=== PATIENT | female | born 1975 | race Two or more races ===

== ENCOUNTER 2021-08-12 12:13 | Emergency (ER) | payer SELFPAY ==
[~2021-08-12] VITALS: Ht 152.4 cm; Wt 100.0 kg
[2021-08-12 12:34] VITALS: BP 142/75
[2021-08-12] MEDS: LIDOCAINE 2% Multi-Dose 20 ML VIAL. IJ ONE (12:53)
[2021-08-12] MEDS: DIPHTH,PERTUSS(ACELL),TET TOX 0.5 ML DISP.SYRIN. VAX IM ONE (12:54)
[2021-08-12] MEDS ORDERED: AMOX1TAB61 PO (13:32)
--- NOTE | 2021-08-12 13:32 | PHYS DOC ---
Past Medical History Past Medical History: Diabetes-Type II Past Surgical History: No Surgical History Smoking Status: Never Smoker Alcohol Use: None Drug Use: None General Adult EDM: Chief Complaint: FINGER INJURY HPI: HPI: Patient is a 46-year-old female who presents today with left third finger pain. Patient states a couple days ago she did some nail care to her nails and she states she trimmed around her cuticles and she believes that she caused a small cut on her cuticle and now it is swollen and painful. Patient states she has a history of diabetes, and she states that her sugars have been running normal. Patient denies chest pain, shortness of breath, fever or chills. Patient is [place]-speaking only and there is an purler at the bedside to assist with HPI and review of systems. Review of Systems: Review of Systems: Constitutional: Denies fever or chills. [] Eyes: Denies change in visual acuity. [] HENT: Denies nasal congestion or sore throat. [] Respiratory: Denies cough or shortness of breath. [] Cardiovascular: Denies chest pain or edema. [] GI: Denies abdominal pain, nausea, vomiting, bloody stools or diarrhea. [] : Denies dysuria. [] Musculoskeletal: Left third finger pain Integument: Denies rash. [] Neurologic: Denies headache, focal weakness or sensory changes. [] Endocrine: Denies polyuria or polydipsia. [] Lymphatic: Denies swollen glands. [] Psychiatric: Denies depression or anxiety. [] Heart Score: C/O Chest Pain: No Risk Factors: Risk Factors: DM, Current or recent (<one month) smoker, HTN, HLP, family history of CAD, obesity. Risk Scores: Score 0 - 3: 2.5% MACE over next 6 weeks - Discharge Home Score 4 - 6: 20.3% MACE over next 6 weeks - Admit for Clinical Observation Score 7 - 10: 72.7% MACE over next 6 weeks - Early Invasive Strategies Current Medications: Current Medications Medications (Trade) Dose Ordered Sig/Jorge Start Time Stop Time Status Last Admin Dose Admin Diphtheria/ Tetanus/Acell Pertussis (Boostrix) 0.5 ml ONCE ONCE 08/12/21 12:45 08/12/21 12:49 DC 08/12/21 12:54 0.5 ML Lidocaine HCl (Lidocaine 2% 20ml Vial) 20 ml 1X ONCE 08/12/21 12:45 08/12/21 12:49 DC 08/12/21 12:53 20 ML Allergies: Allergies: Allergies Coded Allergies Type Severity Reaction Last Updated Verified No Known Drug Allergies 08/12/21 No Physical Exam: PE: Constitutional: Well developed, well nourished, no acute distress, non-toxic appearance. [] HENT: Normocephalic, atraumatic, bilateral external ears normal, oropharynx moist, no oral exudates, nose normal. [] Eyes: PERRLA, EOMI, conjunctiva normal, no discharge. [] Neck: Normal range of motion, no tenderness, supple, no stridor. [] Cardiovascular:Heart rate regular rhythm, no murmur [] Lungs & Thorax: Bilateral breath sounds clear to auscultation [] Abdomen: Bowel sounds normal, soft, no tenderness, no masses, no pulsatile masses. [] Skin: Left third finger pain distal and to the lateral aspect of the nail, there is swelling and there is a collection of fluid due to an area of blanching that is noted with pressure is applied to the distal end of the finger. Back: No tenderness, no CVA tenderness. [] Extremities: Left third finger tenderness is noted with palpation to the distal aspect of the finger, range of motion is intact cap refills less than 2 seconds, sensory is intact distal to the injury. Patient has adequate range of motion of the hand with flexion extension present. Neurologic: Alert and oriented X 3, normal motor function, normal sensory function, no focal deficits noted. [] Psychologic: Affect normal, judgement normal, mood normal. [] Current Patient Data: Vital Signs: Vital Signs Date Time Temp Pulse Resp B/P (MAP) Pulse Ox O2 Delivery O2 Flow Rate FiO2 08/12/21 12:34 97.9 76 18 142/75 (97) 100 Room Air 97.9 EKG: EKG: [] Radiology/Procedures: Radiology/Procedures: Indication: left third finger paronychia Procedure: Patient was placed in a supine position, digital block was done to the left third finger, after the finger was appropriate anesthetized with lidocaine 2% 4 mL, area was cleansed with Betadine solution, using a #11 scalpel a incision was made parallel to the nail on the lateral aspect, scant amount of pus was obtained, nonadherent dressing was applied by the nursing staff along with tube gauze, patient's tetanus shot was updated while she was here in the emergency department The patient tolerated the procedure well. Course & Med Decision Making: Course & Med Decision Making Pertinent Labs and Imaging studies reviewed. (See chart for details) [1328 dressing applied by nursing staff patient will be discharged home, patient is instructed to keep the wound clean and dry, if she does handle any food or needs to get her hands wet she is to wear gloves, she is to leave the current dressing in place for the next 24 hours and then remove keeping the area covered until it is healed. Patient will be placed on Augmentin 875 twice daily for 7 days, patient is to take Tylenol and/or ibuprofen as needed for pain follow-up with her primary care physician next week for further evaluation and management of this. Patient is instructed to return here to the emergency department should she have increased pain and swelling in the finger, any red streaks noted in the hand, or she develops a fever. Dragon Disclaimer: Dragon Disclaimer: This electronic medical record was generated, in whole or in part, using a voice recognition dictation system. Departure Departure Impression: Primary Impression: Paronychia of finger of left hand Disposition: 01 HOME / SELF CARE / HOMELESS Condition: STABLE Referrals: RUTHANN WEST MD (PCP) Patient Instructions: Paronychia Additional Instructions: Augmentin 875 mg 1 tablet twice daily for 7 full days Leave the current dressing in place for the next 24 hours then remove keeping the wound clean and dry cleansing it twice daily with antibacterial soap, watching for any signs and symptoms of infection which may include redness, swelling, increased drainage, or red streaking of the hand Tylenol and/or ibuprofen as needed for pain Follow-up with your primary care physician in the next 5 to 7 days for further evaluation and management of this infected cuticle Return to the emergency department should you develop a fever, or increased swelling or redness in the finger or hand, or for any increased drainage. [facility] [address] [place] [address] Scripts Amoxicillin/Potassium Clav (AUGMENTIN 875-125 TABLET) 1 Each Tablet 1 TAB PO BID for 7 Days, #14 TAB 0 Refills Prov: JUAN CARLOS BOSWELL [employer] 08/12/21 JUAN CARLOS BOSWELL [employer] August 12, 2021 13:32
== END 2021-08-12 13:54 | disposition home or self-care (01) ==
LOC: ER 12:13
DX: L03.012 Cellulitis of left finger (principal); E11.9 Type 2 diabetes mellitus without complications
CPT/HCPCS: 10060; 90471; 90715; 99283